=== PATIENT | male | born 1940 | race Caucasian/White ===

== ENCOUNTER 2018-02-03 13:22 | Emergency (ER) | payer MEDICARE ==
[2018-02-03] MEDS ORDERED: AMOXicillin 250 MG CAP ONE (13:42)
== END 2018-02-03 13:50 | disposition home or self-care (01) ==
LOC: BURERS 13:22
DX: J20.9 Acute bronchitis, unspecified (principal); E03.9 Hypothyroidism, unspecified; I10 Essential (primary) hypertension; Z79.899 Other long term (current) drug therapy
CPT/HCPCS: 99283

== ENCOUNTER 2021-07-06 09:51 | Emergency (ER) | payer OTHER | END 2021-07-06 22:55 | disposition home or self-care (01) | LOC: BURERS 09:51 | DX: I10 Essential (primary) hypertension (principal) | CPT/HCPCS: 99281 ==

== ENCOUNTER 2022-08-30 14:32 | Emergency (ER) | payer OTHER ==
[2022-08-30 15:35] LABS: Band 1 % (5-11); Eosinophils 2 % (0-10); Hemoglobin 14.8 g/dL (14.0-18.0); Lymphocytes 14 % (21-51); MDiff Complete? YES; Mean Corpuscular HGB CONC 32.4 g/dL (32.0-36.0); Mean Corpuscular Hemoglobin 28.3 pg (27.0-31.0); Mean Corpuscular Volume 87.3 fl (78.0-98.0); Mean Platelet Volume 7.6 fL (7.4-10.4); Monocytes 17 % (0-10); Neutrophil 66 % (42-75); Platelet Count 216 10x3/uL (130-400); RBC Distribution Width 13.9 % (11.5-14.5); Red Blood Cell (RBC) Count 5.22 mill/uL (4.70-6.10); White Blood Cell (WBC) Count 7.6 10x3/uL (4.8-10.8)
[2022-08-30 15:46] LABS: ALT (SGPT) 18 U/L (8-55); AST (SGOT) 22 U/L (5-34); Albumin 3.8 g/dL (3.4-4.8); Alkaline Phosphatase 61 U/L (40-110); Anion Gap 13 mmol/L (10-20); BUN (Urea Nitrogen) 12 mg/dL (8.4-25.7); Bilirubin, Total 0.4 mg/dL (0.2-1.2); Calc. Creatinine Clearance 0 mL/min (70-130); Calcium 8.3 mg/dL (7.8-10.44); Carbon Dioxide 29 mmol/L (23-31); Chloride 96 mmol/L (98-107); Estimated GFR 51; Glucose 99 mg/dL (83-110); Magnesium 1.6 mg/dL (1.6-2.6); Potassium 3.1 mmol/L (3.5-5.1); Protein, Total 6.8 g/dL (5.8-8.1); Sodium 135 mmol/L (136-145)
[2022-08-30 16:49] LABS: Bilirubin Negative (Negative); Blood, Urine Trace (Negative); Clarity Clear (Clear); Glucose, Urine (Dipstick) Negative (Negative); Ketone, Urine Negative (Negative); Leukocyte Negative (Negative); Nitrite Negative (Negative); Protein, Urine (Dipstick) Trace mg/dL (Neg-Trace); Specific Gravity, Urine 1.015 (1.005-1.030)
[2022-08-30 16:57] LABS: Bacteria/HPF None Seen HPF (None Seen); RBC/HPF 0-3 HPF (0-3); Squamous Epithelial 0-3 HPF (0-3); WBC/HPF None Seen HPF (0-3)
[2022-08-30] MEDS ORDERED: Potassium Chloride 20 MEQ TAB ONE (17:20)
== END 2022-08-30 18:43 | disposition home or self-care (01) ==
LOC: BURERS 14:32
DX: E86.0 Dehydration (principal); E87.6 Hypokalemia; E03.9 Hypothyroidism, unspecified; I10 Essential (primary) hypertension
CPT/HCPCS: 36415; 71045; 80053; 81003; 81015; 83735; 85025; 93005; 96360

== ENCOUNTER 2023-01-15 09:38 | Inpatient (IN) | payer MEDICARE ==
[2023-01-16] MEDS: Hydrocortisone 10 mg Tablet PO SCH (22:20)
[2023-01-17] MEDS: Levothyroxine Sodium 100 MCG TAB PO SCH (04:56)
[2023-01-17] MEDS: Levothyroxine Sodium 50 MCG TAB PO SCH (04:56)
[2023-01-17] MEDS: BROMOCRIPTINE PO SCH ×2 (09:00→11:07)
[2023-01-17] MEDS: Amlodipine 5 MG TAB PO SCH (10:00)
[2023-01-17] MEDS: Hydrocortisone 10 mg Tablet PO SCH ×2 (10:00→21:19)
[2023-01-17] MEDS: PARoxetine 20 MG TAB PO SCH (10:01)
[2023-01-17] MEDS: Aspirin 81 mg Enteric Coated Tablet PO SCH (10:01)
[2023-01-17] MEDS: Dutasteride 0.5 MG CAP PO SCH (10:03)
[2023-01-17] MEDS: Calcium Carbonate 600 MG + Vit D TAB PO SCH (10:03)
[2023-01-17] MEDS ORDERED: Cyanocobalamin 1000 MCG/ML VIAL IM SCH (13:00)
[2023-01-18] MEDS: Levothyroxine Sodium 50 MCG TAB PO SCH (04:54)
[2023-01-18] MEDS: Levothyroxine Sodium 100 MCG TAB PO SCH (04:54)
[2023-01-18] MEDS: Amlodipine 5 MG TAB PO SCH (09:36)
[2023-01-18] MEDS: Hydrocortisone 10 mg Tablet PO SCH ×2 (09:37→21:46)
[2023-01-18] MEDS: Aspirin 81 mg Enteric Coated Tablet PO SCH (09:37)
[2023-01-18] MEDS: Bromocriptine 2.5 MG TAB PO SCH (09:38)
[2023-01-18] MEDS: Calcium Carbonate 600 MG + Vit D TAB PO SCH (09:39)
[2023-01-18] MEDS: Dutasteride 0.5 MG CAP PO SCH (09:39)
[2023-01-18] MEDS: PARoxetine 20 MG TAB PO SCH (09:39)
[2023-01-18] MEDS: TESTOSTERONE CYPIONATE 200 MG/ML IM SCH (09:40)
[2023-01-19] MEDS: Levothyroxine Sodium 100 MCG TAB PO SCH (05:31)
[2023-01-19] MEDS: Levothyroxine Sodium 50 MCG TAB PO SCH (05:32)
[2023-01-19] MEDS: Hydrocortisone 10 mg Tablet PO SCH ×2 (09:10→20:34)
[2023-01-19] MEDS: Bromocriptine 2.5 MG TAB PO SCH (09:10)
[2023-01-19] MEDS: Calcium Carbonate 600 MG + Vit D TAB PO SCH (09:10)
[2023-01-19] MEDS: Dutasteride 0.5 MG CAP PO SCH (09:10)
[2023-01-19] MEDS: Aspirin 81 mg Enteric Coated Tablet PO SCH (09:10)
[2023-01-19] MEDS: Amlodipine 5 MG TAB PO SCH (09:13)
[2023-01-19] MEDS: PARoxetine 20 MG TAB PO SCH (09:14)
[2023-01-20] MEDS: Levothyroxine Sodium 50 MCG TAB PO SCH (05:11)
[2023-01-20] MEDS: Levothyroxine Sodium 100 MCG TAB PO SCH (05:11)
[2023-01-20 05:48] LABS: ALT (SGPT) 34 U/L (8-55); AST (SGOT) 35 U/L (5-34); Albumin 3.6 g/dL (3.4-4.8); Alkaline Phosphatase 81 U/L (40-110); Anion Gap 15 mmol/L (10-20); BUN (Urea Nitrogen) 23 mg/dL (8.4-25.7); Bilirubin, Total 0.4 mg/dL (0.2-1.2); Calc. Creatinine Clearance 33 mL/min (70-130); Calcium 8.1 mg/dL (7.8-10.44); Carbon Dioxide 20 mmol/L (23-31); Chloride 103 mmol/L (98-107); Estimated GFR 36; Globulin 3.4 g/dL (2.4-3.5); Glucose 77 mg/dL (83-110); Sodium 134 mmol/L (136-145)
[2023-01-20 06:29] LABS: Hemoglobin 10.1 g/dL (14.0-18.0); Lymphocytes 30 % (21-51); MDiff Complete? YES; Mean Corpuscular HGB CONC 31.7 g/dL (32.0-36.0); Mean Corpuscular Hemoglobin 26.3 pg (27.0-31.0); Mean Platelet Volume 7.7 fL (7.4-10.4); Monocytes 12 % (0-10); Neutrophil 54 % (42-75); Platelet Count 428 10x3/uL (130-400); Platelet Morphology Comment Appears Increased; RBC Distribution Width 15.9 % (11.5-14.5); RBC Morphology Normal; Red Blood Cell (RBC) Count 3.83 mill/uL (4.70-6.10); White Blood Cell (WBC) Count 3.8 10x3/uL (4.8-10.8)
[2023-01-20] MEDS: Dutasteride 0.5 MG CAP PO SCH (09:37)
[2023-01-20] MEDS: Amlodipine 5 MG TAB PO SCH (09:37)
[2023-01-20] MEDS: Calcium Carbonate 600 MG + Vit D TAB PO SCH (09:37)
[2023-01-20] MEDS: Bromocriptine 2.5 MG TAB PO SCH (09:38)
[2023-01-20] MEDS: PARoxetine 20 MG TAB PO SCH (09:38)
[2023-01-20] MEDS: Hydrocortisone 10 mg Tablet PO SCH ×2 (09:38→20:47)
[2023-01-20] MEDS: Aspirin 81 mg Enteric Coated Tablet PO SCH (09:38)
[2023-01-21] MEDS: Levothyroxine Sodium 100 MCG TAB PO SCH (05:42)
[2023-01-21] MEDS: Levothyroxine Sodium 50 MCG TAB PO SCH (05:42)
[2023-01-21] MEDS: Hydrocortisone 10 mg Tablet PO SCH ×2 (09:56→20:05)
[2023-01-21] MEDS: Bromocriptine 2.5 MG TAB PO SCH (09:56)
[2023-01-21] MEDS: Amlodipine 5 MG TAB PO SCH (09:56)
[2023-01-21] MEDS: Calcium Carbonate 600 MG + Vit D TAB PO SCH (09:59)
[2023-01-21] MEDS: Dutasteride 0.5 MG CAP PO SCH (09:59)
[2023-01-21] MEDS: Aspirin 81 mg Enteric Coated Tablet PO SCH (09:59)
[2023-01-21] MEDS: PARoxetine 20 MG TAB PO SCH (09:59)
[2023-01-22] MEDS: Levothyroxine Sodium 100 MCG TAB PO SCH (05:33)
[2023-01-22] MEDS: Levothyroxine Sodium 50 MCG TAB PO SCH (05:37)
[2023-01-22] MEDS: Hydrocortisone 10 mg Tablet PO SCH ×2 (09:28→20:22)
[2023-01-22] MEDS: PARoxetine 20 MG TAB PO SCH (09:28)
[2023-01-22] MEDS: Aspirin 81 mg Enteric Coated Tablet PO SCH (09:28)
[2023-01-22] MEDS: Dutasteride 0.5 MG CAP PO SCH (09:28)
[2023-01-22] MEDS: Calcium Carbonate 600 MG + Vit D TAB PO SCH (09:28)
[2023-01-22] MEDS: Bromocriptine 2.5 MG TAB PO SCH (09:28)
[2023-01-22] MEDS: Amlodipine 5 MG TAB PO SCH (09:28)
[2023-01-23 05:36] LABS: ALT (SGPT) 31 U/L (8-55); AST (SGOT) 37 U/L (5-34); Albumin 3.9 g/dL (3.4-4.8); Alkaline Phosphatase 85 U/L (40-110); Anion Gap 14 mmol/L (10-20); BUN (Urea Nitrogen) 17 mg/dL (8.4-25.7); Calc. Creatinine Clearance 36 mL/min (70-130); Calcium 8.6 mg/dL (7.8-10.44); Carbon Dioxide 22 mmol/L (23-31); Chloride 104 mmol/L (98-107); Estimated GFR 40; Globulin 3.6 g/dL (2.4-3.5); Glucose 78 mg/dL (83-110); Potassium 4.1 mmol/L (3.5-5.1); Protein, Total 7.5 g/dL (5.8-8.1); Sodium 136 mmol/L (136-145)
[2023-01-23 05:42] LABS: Hemoglobin 11.6 g/dL (14.0-18.0); Mean Corpuscular HGB CONC 32.2 g/dL (32.0-36.0); Mean Corpuscular Hemoglobin 26.9 pg (27.0-31.0); Mean Corpuscular Volume 83.6 fl (78.0-98.0); Mean Platelet Volume 7.6 fL (7.4-10.4); Platelet Count 389 10x3/uL (130-400); RBC Distribution Width 16.1 % (11.5-14.5); Red Blood Cell (RBC) Count 4.31 mill/uL (4.70-6.10); White Blood Cell (WBC) Count 4.5 10x3/uL (4.8-10.8)
[2023-01-23] MEDS: Levothyroxine Sodium 100 MCG TAB PO SCH (05:43)
[2023-01-23] MEDS: Levothyroxine Sodium 50 MCG TAB PO SCH (05:43)
[2023-01-23 05:44] LABS: Bilirubin, Total 0.5 mg/dL (0.2-1.2)
[2023-01-23 06:19] LABS: Band 1 % (5-11); Lymphocytes 33 % (21-51); MDiff Complete? YES; Monocytes 12 % (0-10); Neutrophil 54 % (42-75); RBC Morphology Normal
[2023-01-23] MEDS: Aspirin 81 mg Enteric Coated Tablet PO SCH (10:02)
[2023-01-23] MEDS: Dutasteride 0.5 MG CAP PO SCH (10:02)
[2023-01-23] MEDS: Megestrol Acetate 40 MG TAB PO SCH ×2 (10:02→21:38)
[2023-01-23] MEDS: Calcium Carbonate 600 MG + Vit D TAB PO SCH (10:02)
[2023-01-23] MEDS: Hydrocortisone 10 mg Tablet PO SCH ×2 (10:03→21:38)
[2023-01-23] MEDS: Bromocriptine 2.5 MG TAB PO SCH (10:03)
[2023-01-23] MEDS: PARoxetine 20 MG TAB PO SCH (10:03)
[2023-01-23] MEDS: Amlodipine 5 MG TAB PO SCH ×2 (10:03→10:11)
[2023-01-24] MEDS: Levothyroxine Sodium 50 MCG TAB PO SCH (05:48)
[2023-01-24] MEDS: Levothyroxine Sodium 100 MCG TAB PO SCH (05:48)
[2023-01-24] MEDS: Calcium Carbonate 600 MG + Vit D TAB PO SCH (09:04)
[2023-01-24] MEDS: Hydrocortisone 10 mg Tablet PO SCH ×2 (09:04→20:15)
[2023-01-24] MEDS: Polyethylene Glycol 3350 17 GM Packet PO PRN (09:04)
[2023-01-24] MEDS: Dutasteride 0.5 MG CAP PO SCH (09:04)
[2023-01-24] MEDS: Megestrol Acetate 40 MG TAB PO SCH ×2 (09:04→20:15)
[2023-01-24] MEDS: PARoxetine 20 MG TAB PO SCH (09:05)
[2023-01-24] MEDS: Amlodipine 5 MG TAB PO SCH (09:05)
[2023-01-24] MEDS: Bromocriptine 2.5 MG TAB PO SCH (09:05)
[2023-01-24] MEDS: Aspirin 81 mg Enteric Coated Tablet PO SCH (09:05)
[2023-01-25] MEDS: Levothyroxine Sodium 100 MCG TAB PO SCH (05:30)
[2023-01-25] MEDS: Levothyroxine Sodium 50 MCG TAB PO SCH (05:30)
[2023-01-25] MEDS: Hydrocortisone 10 mg Tablet PO SCH ×2 (09:08→20:28)
[2023-01-25] MEDS: Bromocriptine 2.5 MG TAB PO SCH (09:08)
[2023-01-25] MEDS: Dutasteride 0.5 MG CAP PO SCH (09:08)
[2023-01-25] MEDS: PARoxetine 20 MG TAB PO SCH (09:08)
[2023-01-25] MEDS: Calcium Carbonate 600 MG + Vit D TAB PO SCH (09:09)
[2023-01-25] MEDS: Amlodipine 5 MG TAB PO SCH (09:09)
[2023-01-25] MEDS: Megestrol Acetate 40 MG TAB PO SCH ×2 (09:10→20:28)
[2023-01-25] MEDS: Aspirin 81 mg Enteric Coated Tablet PO SCH (09:10)
[2023-01-25] MEDS: Polyethylene Glycol 3350 17 GM Packet PO PRN (09:19)
[2023-01-26] MEDS: Levothyroxine Sodium 100 MCG TAB PO SCH (05:21)
[2023-01-26] MEDS: Levothyroxine Sodium 50 MCG TAB PO SCH (05:21)
[2023-01-26] MEDS ORDERED: Milk Of Magnesia 30 ML UDCUP PO PRN (07:18)
[2023-01-26] MEDS: Dutasteride 0.5 MG CAP PO SCH (08:51)
[2023-01-26] MEDS: Calcium Carbonate 600 MG + Vit D TAB PO SCH (08:51)
[2023-01-26] MEDS: PARoxetine 20 MG TAB PO SCH (08:52)
[2023-01-26] MEDS: Amlodipine 5 MG TAB PO SCH (08:52)
[2023-01-26] MEDS: Bromocriptine 2.5 MG TAB PO SCH (08:52)
[2023-01-26] MEDS: Megestrol Acetate 40 MG TAB PO SCH ×2 (08:52→21:32)
[2023-01-26] MEDS: Hydrocortisone 10 mg Tablet PO SCH ×2 (08:52→21:32)
[2023-01-26] MEDS: Aspirin 81 mg Enteric Coated Tablet PO SCH (09:02)
[2023-01-27] MEDS: Levothyroxine Sodium 50 MCG TAB PO SCH (06:35)
[2023-01-27] MEDS: Levothyroxine Sodium 100 MCG TAB PO SCH (06:35)
[2023-01-27] MEDS: Dutasteride 0.5 MG CAP PO SCH (09:10)
[2023-01-27] MEDS: Megestrol Acetate 40 MG TAB PO SCH ×2 (09:10→21:44)
[2023-01-27] MEDS: Hydrocortisone 10 mg Tablet PO SCH ×2 (09:10→21:43)
[2023-01-27] MEDS: PARoxetine 20 MG TAB PO SCH (09:10)
[2023-01-27] MEDS: Amlodipine 5 MG TAB PO SCH (09:11)
[2023-01-27] MEDS: Aspirin 81 mg Enteric Coated Tablet PO SCH (09:11)
[2023-01-27] MEDS: Bromocriptine 2.5 MG TAB PO SCH (09:11)
[2023-01-27] MEDS: Calcium Carbonate 600 MG + Vit D TAB PO SCH (09:11)
[2023-01-27] MEDS: Senokot S 8.6-50 MG TAB PO SCH ×2 (09:15→21:45)
[2023-01-27] MEDS: Atorvastatin Calcium 40 MG TAB PO SCH (21:44)
[2023-01-28] MEDS: Levothyroxine Sodium 100 MCG TAB PO SCH (05:44)
[2023-01-28] MEDS: Levothyroxine Sodium 50 MCG TAB PO SCH (05:44)
[2023-01-28] MEDS: Megestrol Acetate 40 MG TAB PO SCH ×2 (08:59→21:01)
[2023-01-28] MEDS: Aspirin 81 mg Enteric Coated Tablet PO SCH (08:59)
[2023-01-28] MEDS: Senokot S 8.6-50 MG TAB PO SCH ×2 (08:59→21:01)
[2023-01-28] MEDS: Dutasteride 0.5 MG CAP PO SCH (08:59)
[2023-01-28] MEDS: PARoxetine 20 MG TAB PO SCH (08:59)
[2023-01-28] MEDS: Hydrocortisone 10 mg Tablet PO SCH ×2 (08:59→21:01)
[2023-01-28] MEDS: Bromocriptine 2.5 MG TAB PO SCH (08:59)
[2023-01-28] MEDS: Calcium Carbonate 600 MG + Vit D TAB PO SCH (09:00)
[2023-01-28] MEDS: Amlodipine 5 MG TAB PO SCH (09:00)
[2023-01-28] MEDS: Atorvastatin Calcium 40 MG TAB PO SCH (21:01)
[2023-01-29] MEDS: Levothyroxine Sodium 50 MCG TAB PO SCH (06:04)
[2023-01-29] MEDS: Levothyroxine Sodium 100 MCG TAB PO SCH (06:04)
[2023-01-29] MEDS: Calcium Carbonate 600 MG + Vit D TAB PO SCH (08:53)
[2023-01-29] MEDS: Dutasteride 0.5 MG CAP PO SCH (08:53)
[2023-01-29] MEDS: Amlodipine 5 MG TAB PO SCH (08:53)
[2023-01-29] MEDS: PARoxetine 20 MG TAB PO SCH (08:53)
[2023-01-29] MEDS: Aspirin 81 mg Enteric Coated Tablet PO SCH (08:53)
[2023-01-29] MEDS: Hydrocortisone 10 mg Tablet PO SCH ×2 (08:53→21:23)
[2023-01-29] MEDS: Bromocriptine 2.5 MG TAB PO SCH (08:53)
[2023-01-29] MEDS: Megestrol Acetate 40 MG TAB PO SCH ×2 (08:53→21:23)
[2023-01-29] MEDS: Senokot S 8.6-50 MG TAB PO SCH ×2 (08:54→21:23)
[2023-01-29] MEDS: Atorvastatin Calcium 40 MG TAB PO SCH (21:23)
[2023-01-30] MEDS: Levothyroxine Sodium 50 MCG TAB PO SCH (05:39)
[2023-01-30] MEDS: Levothyroxine Sodium 100 MCG TAB PO SCH (05:39)
[2023-01-30] MEDS: Megestrol Acetate 40 MG TAB PO SCH ×2 (09:28→20:51)
[2023-01-30] MEDS: Bromocriptine 2.5 MG TAB PO SCH (09:28)
[2023-01-30] MEDS: PARoxetine 20 MG TAB PO SCH (09:28)
[2023-01-30] MEDS: Amlodipine 5 MG TAB PO SCH (09:28)
[2023-01-30] MEDS: Hydrocortisone 10 mg Tablet PO SCH ×2 (09:28→20:51)
[2023-01-30] MEDS: Calcium Carbonate 600 MG + Vit D TAB PO SCH (09:28)
[2023-01-30] MEDS: Dutasteride 0.5 MG CAP PO SCH (09:28)
[2023-01-30] MEDS: Aspirin 81 mg Enteric Coated Tablet PO SCH (09:29)
[2023-01-30] MEDS: Senokot S 8.6-50 MG TAB PO SCH ×2 (09:29→20:52)
[2023-01-30] MEDS: Atorvastatin Calcium 40 MG TAB PO SCH (20:51)
[2023-01-31] MEDS: Levothyroxine Sodium 100 MCG TAB PO SCH (05:45)
[2023-01-31] MEDS: Levothyroxine Sodium 50 MCG TAB PO SCH (05:45)
[2023-01-31] MEDS: Aspirin 81 mg Enteric Coated Tablet PO SCH (09:24)
[2023-01-31] MEDS: Amlodipine 5 MG TAB PO SCH (09:24)
[2023-01-31] MEDS: Megestrol Acetate 40 MG TAB PO SCH ×2 (09:24→21:40)
[2023-01-31] MEDS: PARoxetine 20 MG TAB PO SCH (09:24)
[2023-01-31] MEDS: Dutasteride 0.5 MG CAP PO SCH (09:24)
[2023-01-31] MEDS: Hydrocortisone 10 mg Tablet PO SCH ×2 (09:25→21:40)
[2023-01-31] MEDS: Calcium Carbonate 600 MG + Vit D TAB PO SCH (09:25)
[2023-01-31] MEDS: Bromocriptine 2.5 MG TAB PO SCH (09:25)
[2023-01-31] MEDS: Senokot S 8.6-50 MG TAB PO SCH ×2 (09:32→21:41)
[2023-01-31] MEDS: Atorvastatin Calcium 40 MG TAB PO SCH (21:40)
[2023-02-01] MEDS: Levothyroxine Sodium 50 MCG TAB PO SCH (05:31)
[2023-02-01] MEDS: Levothyroxine Sodium 100 MCG TAB PO SCH (05:31)
[2023-02-01] MEDS: Aspirin 81 mg Enteric Coated Tablet PO SCH (10:37)
[2023-02-01] MEDS: Megestrol Acetate 40 MG TAB PO SCH ×2 (10:37→21:11)
[2023-02-01] MEDS: Senokot S 8.6-50 MG TAB PO SCH ×2 (10:37→21:12)
[2023-02-01] MEDS: Dutasteride 0.5 MG CAP PO SCH (10:37)
[2023-02-01] MEDS: PARoxetine 20 MG TAB PO SCH (10:37)
[2023-02-01] MEDS: Amlodipine 5 MG TAB PO SCH (10:37)
[2023-02-01] MEDS: Calcium Carbonate 600 MG + Vit D TAB PO SCH (10:38)
[2023-02-01] MEDS: Bromocriptine 2.5 MG TAB PO SCH (10:38)
[2023-02-01] MEDS: Hydrocortisone 10 mg Tablet PO SCH ×2 (10:38→21:11)
[2023-02-01] MEDS: Atorvastatin Calcium 40 MG TAB PO SCH (21:11)
[2023-02-02] MEDS: Levothyroxine Sodium 50 MCG TAB PO SCH (06:06)
[2023-02-02] MEDS: Levothyroxine Sodium 100 MCG TAB PO SCH (06:06)
[2023-02-02] MEDS: PARoxetine 20 MG TAB PO SCH (09:42)
[2023-02-02] MEDS: Hydrocortisone 10 mg Tablet PO SCH ×2 (09:42→21:10)
[2023-02-02] MEDS: Senokot S 8.6-50 MG TAB PO SCH ×2 (09:42→21:10)
[2023-02-02] MEDS: Aspirin 81 mg Enteric Coated Tablet PO SCH (09:42)
[2023-02-02] MEDS: Dutasteride 0.5 MG CAP PO SCH (09:43)
[2023-02-02] MEDS: Calcium Carbonate 600 MG + Vit D TAB PO SCH (09:43)
[2023-02-02] MEDS: Bromocriptine 2.5 MG TAB PO SCH (09:43)
[2023-02-02] MEDS: Amlodipine 5 MG TAB PO SCH (09:44)
[2023-02-02] MEDS: Megestrol Acetate 40 MG TAB PO SCH ×2 (09:44→21:10)
[2023-02-02] MEDS: Atorvastatin Calcium 40 MG TAB PO SCH (21:10)
[2023-02-03] MEDS: Levothyroxine Sodium 50 MCG TAB PO SCH (05:13)
[2023-02-03] MEDS: Levothyroxine Sodium 100 MCG TAB PO SCH (05:13)
[2023-02-03] MEDS: PARoxetine 20 MG TAB PO SCH (08:02)
[2023-02-03] MEDS: Aspirin 81 mg Enteric Coated Tablet PO SCH (08:02)
[2023-02-03] MEDS: Megestrol Acetate 40 MG TAB PO SCH ×2 (08:02→21:46)
[2023-02-03] MEDS: Amlodipine 5 MG TAB PO SCH (08:02)
[2023-02-03] MEDS: Senokot S 8.6-50 MG TAB PO SCH ×2 (08:02→21:46)
[2023-02-03] MEDS: Hydrocortisone 10 mg Tablet PO SCH ×2 (08:03→21:46)
[2023-02-03] MEDS: Dutasteride 0.5 MG CAP PO SCH (08:03)
[2023-02-03] MEDS: Calcium Carbonate 600 MG + Vit D TAB PO SCH (08:03)
[2023-02-03] MEDS: Bromocriptine 2.5 MG TAB PO SCH (08:03)
[2023-02-03 10:29] VITALS: BMI 24.5
[2023-02-03] MEDS: Atorvastatin Calcium 40 MG TAB PO SCH (21:46)
[2023-02-04] MEDS: Levothyroxine Sodium 100 MCG TAB PO SCH (05:13)
[2023-02-04] MEDS: Levothyroxine Sodium 50 MCG TAB PO SCH (05:13)
[2023-02-04] MEDS: Bromocriptine 2.5 MG TAB PO SCH (09:34)
[2023-02-04] MEDS: Senokot S 8.6-50 MG TAB PO SCH ×2 (09:34→21:09)
[2023-02-04] MEDS: Aspirin 81 mg Enteric Coated Tablet PO SCH (09:35)
[2023-02-04] MEDS: Dutasteride 0.5 MG CAP PO SCH (09:35)
[2023-02-04] MEDS: Hydrocortisone 10 mg Tablet PO SCH ×2 (09:35→21:09)
[2023-02-04] MEDS: Megestrol Acetate 40 MG TAB PO SCH ×2 (09:35→21:09)
[2023-02-04] MEDS: PARoxetine 20 MG TAB PO SCH (09:35)
[2023-02-04] MEDS: Calcium Carbonate 600 MG + Vit D TAB PO SCH (09:35)
[2023-02-04] MEDS: Amlodipine 5 MG TAB PO SCH (09:35)
[2023-02-04] MEDS: Atorvastatin Calcium 40 MG TAB PO SCH (21:09)
[2023-02-05] MEDS: Levothyroxine Sodium 100 MCG TAB PO SCH (05:45)
[2023-02-05] MEDS: Levothyroxine Sodium 50 MCG TAB PO SCH (05:45)
[2023-02-05] MEDS: Senokot S 8.6-50 MG TAB PO SCH ×2 (09:54→21:03)
[2023-02-05] MEDS: Hydrocortisone 10 mg Tablet PO SCH ×2 (09:54→21:03)
[2023-02-05] MEDS: Bromocriptine 2.5 MG TAB PO SCH (09:54)
[2023-02-05] MEDS: Dutasteride 0.5 MG CAP PO SCH (09:54)
[2023-02-05] MEDS: Megestrol Acetate 40 MG TAB PO SCH ×2 (09:54→21:03)
[2023-02-05] MEDS: Calcium Carbonate 600 MG + Vit D TAB PO SCH (09:54)
[2023-02-05] MEDS: Amlodipine 5 MG TAB PO SCH (09:54)
[2023-02-05] MEDS: PARoxetine 20 MG TAB PO SCH (09:55)
[2023-02-05] MEDS: Aspirin 81 mg Enteric Coated Tablet PO SCH (09:55)
[2023-02-05] MEDS: Atorvastatin Calcium 40 MG TAB PO SCH (21:03)
[2023-02-06] MEDS: Levothyroxine Sodium 50 MCG TAB PO SCH (05:44)
[2023-02-06] MEDS: Levothyroxine Sodium 100 MCG TAB PO SCH (05:44)
[2023-02-06] MEDS: Senokot S 8.6-50 MG TAB PO SCH ×2 (09:33→20:32)
[2023-02-06] MEDS: Dutasteride 0.5 MG CAP PO SCH (09:33)
[2023-02-06] MEDS: Aspirin 81 mg Enteric Coated Tablet PO SCH (09:33)
[2023-02-06] MEDS: Bromocriptine 2.5 MG TAB PO SCH (09:33)
[2023-02-06] MEDS: Hydrocortisone 10 mg Tablet PO SCH ×2 (09:33→20:32)
[2023-02-06] MEDS: Calcium Carbonate 600 MG + Vit D TAB PO SCH (09:34)
[2023-02-06] MEDS: Amlodipine 5 MG TAB PO SCH (09:34)
[2023-02-06] MEDS: Megestrol Acetate 40 MG TAB PO SCH ×2 (09:34→20:32)
[2023-02-06] MEDS: PARoxetine 20 MG TAB PO SCH (09:34)
[2023-02-06] MEDS: Atorvastatin Calcium 40 MG TAB PO SCH (20:32)
[2023-02-07] MEDS: Levothyroxine Sodium 50 MCG TAB PO SCH (04:59)
[2023-02-07] MEDS: Levothyroxine Sodium 100 MCG TAB PO SCH (04:59)
[2023-02-07] MEDS ORDERED: Cyanocobalamin 1000 MCG/ML VIAL IM SCH (09:00)
[2023-02-07] MEDS: Calcium Carbonate 600 MG + Vit D TAB PO SCH (10:05)
[2023-02-07] MEDS: Bromocriptine 2.5 MG TAB PO SCH (10:05)
[2023-02-07] MEDS: Hydrocortisone 10 mg Tablet PO SCH ×2 (10:05→20:33)
[2023-02-07] MEDS: Dutasteride 0.5 MG CAP PO SCH (10:05)
[2023-02-07] MEDS: Megestrol Acetate 40 MG TAB PO SCH ×2 (10:05→20:32)
[2023-02-07] MEDS: Aspirin 81 mg Enteric Coated Tablet PO SCH (10:06)
[2023-02-07] MEDS: Amlodipine 5 MG TAB PO SCH (10:06)
[2023-02-07] MEDS: Senokot S 8.6-50 MG TAB PO SCH ×2 (10:13→20:32)
[2023-02-07] MEDS: PARoxetine 20 MG TAB PO SCH (10:13)
[2023-02-07] MEDS: Atorvastatin Calcium 40 MG TAB PO SCH (20:32)
[2023-02-08] MEDS: Levothyroxine Sodium 100 MCG TAB PO SCH (05:27)
[2023-02-08] MEDS: Levothyroxine Sodium 50 MCG TAB PO SCH (05:28)
[2023-02-08] MEDS: Aspirin 81 mg Enteric Coated Tablet PO SCH (08:27)
[2023-02-08] MEDS: Megestrol Acetate 40 MG TAB PO SCH ×2 (08:28→20:51)
[2023-02-08] MEDS: Hydrocortisone 10 mg Tablet PO SCH ×2 (08:28→20:51)
[2023-02-08] MEDS: Dutasteride 0.5 MG CAP PO SCH (08:28)
[2023-02-08] MEDS: PARoxetine 20 MG TAB PO SCH (08:28)
[2023-02-08] MEDS: Calcium Carbonate 600 MG + Vit D TAB PO SCH (08:28)
[2023-02-08] MEDS: Senokot S 8.6-50 MG TAB PO SCH ×2 (08:29→20:51)
[2023-02-08] MEDS: Amlodipine 5 MG TAB PO SCH (08:29)
[2023-02-08] MEDS: Bromocriptine 2.5 MG TAB PO SCH (08:29)
[2023-02-08] MEDS: TESTOSTERONE CYPIONATE 200 MG/ML IM SCH (08:38)
[2023-02-08] MEDS: Atorvastatin Calcium 40 MG TAB PO SCH (20:51)
[2023-02-09] MEDS: Levothyroxine Sodium 100 MCG TAB PO SCH (05:21)
[2023-02-09] MEDS: Levothyroxine Sodium 50 MCG TAB PO SCH (05:21)
[2023-02-09 06:15] VITALS: BP 184/73; TEMP 98.1
[2023-02-09] MEDS: Amlodipine 5 MG TAB PO SCH (07:05)
[2023-02-09] MEDS: Megestrol Acetate 40 MG TAB PO SCH (07:05)
[2023-02-09] MEDS: Calcium Carbonate 600 MG + Vit D TAB PO SCH (07:05)
[2023-02-09] MEDS: Dutasteride 0.5 MG CAP PO SCH (07:06)
[2023-02-09] MEDS: Bromocriptine 2.5 MG TAB PO SCH (07:06)
[2023-02-09] MEDS: Aspirin 81 mg Enteric Coated Tablet PO SCH (07:07)
[2023-02-09] MEDS: PARoxetine 20 MG TAB PO SCH (07:07)
[2023-02-09] MEDS: Senokot S 8.6-50 MG TAB PO SCH (07:07)
[2023-02-09] MEDS: Hydrocortisone 10 mg Tablet PO SCH (07:10)
== END 2023-02-09 15:00 | DRG 948 ==
LOC: BURMED 01-16 18:10
PROVIDERS: ADMIT Family Medicine; ATTEND Nurse Practitioner
DX: R53.1 Weakness (principal); F10.239 Alcohol dependence with withdrawal, unspecified; I13.0 Hypertensive heart and chronic kidney disease with heart failure and stage 1 through stage 4 chronic kidney disease, or unspecified chronic kidney disease; I25.10 Atherosclerotic heart disease of native coronary artery without angina pectoris; I48.91 Unspecified atrial fibrillation; E03.9 Hypothyroidism, unspecified; F10.20 Alcohol dependence, uncomplicated; I50.9 Heart failure, unspecified; N18.9 Chronic kidney disease, unspecified; I25.2 Old myocardial infarction; Z98.890 Other specified postprocedural states
CPT/HCPCS: 36415; 80053; 85025; J3420; S0179

== ENCOUNTER 2023-05-18 18:06 | Emergency (ER) | payer OTHER ==
[2023-05-18 18:42] LABS: #Basophils 0.1 thou/uL (0.0-0.2); #Eosinphils 0.6 thou/uL (0.0-0.7); #Lymphocytes 2.4 thou/uL (1.20-3.40); #Monocytes 1.2 thou/uL (0.11-0.59); #Neutrophils 4.8 thou/uL (1.40-6.50); %Basophils 1.3 % (0.0-1.0); %Eosinophils 6.5 % (0.0-10.0); %Lymphocytes 26.3 % (21.0-51.0); %Monocytes 12.9 % (0.0-10.0); %Neutrophils 52.9 % (42.0-75.0); Hematocrit 37.2 % (42.0-52.0); Hemoglobin 11.5 g/dL (14.0-18.0); Mean Corpuscular Hemoglobin 24.8 pg (27.0-31.0); Mean Platelet Volume 7.5 fL (7.4-10.4); Platelet Count 207 10x3/uL (130-400); RBC Distribution Width 13.3 % (11.5-14.5); Red Blood Cell (RBC) Count 4.64 mill/uL (4.70-6.10)
[2023-05-18 18:59] LABS: ALT (SGPT) 38 U/L (8-55); AST (SGOT) 27 U/L (5-34); Albumin 3.6 g/dL (3.4-4.8); Alkaline Phosphatase 57 U/L (40-110); Anion Gap 12 mmol/L (10-20); BUN (Urea Nitrogen) 17 mg/dL (8.4-25.7); Bilirubin, Total 0.5 mg/dL (0.2-1.2); Calc. Creatinine Clearance 0 mL/min (70-130); Calcium 8.4 mg/dL (7.8-10.44); Carbon Dioxide 29 mmol/L (23-31); Chloride 98 mmol/L (98-107); Estimated GFR 56; Globulin 2.5 g/dL (2.4-3.5); Glucose 86 mg/dL (83-110); Magnesium 1.9 mg/dL (1.6-2.6); Potassium 4.1 mmol/L (3.5-5.1); Protein, Total 6.1 g/dL (5.8-8.1); Sodium 135 mmol/L (136-145)
[2023-05-18 19:06] LABS: Troponin I 0.031 ng/mL (< 0.028)
[2023-05-18 19:08] LABS: Hypochromia SLIGHT = 6-15 cells (100X) (0-5/hpf); MDiff Complete? YES
[2023-05-18] MEDS ORDERED: Aspirin 325 MG TAB ONE (20:01)
[2023-05-18 20:08] LABS: Bilirubin Negative (Negative); Blood, Urine Negative (Negative); Clarity Clear (Clear); Glucose, Urine (Dipstick) Negative (Negative); Ketone, Urine Negative (Negative); Leukocyte Negative (Negative); Nitrite Negative (Negative); Protein, Urine (Dipstick) Negative (Neg-Trace); Urobilinogen 0.2 mg/dL (Less than 2); pH, Urine 6.5 (5.0-9.0)
[2023-05-18 20:13] LABS: Bacteria/HPF 1+ HPF (None Seen); CAUTI Indications for Culture Dysuria,urgency,freq; RBC/HPF None Seen HPF (0-3); Squamous Epithelial 0-3 HPF (0-3); Urine Culture Reflex No No; WBC/HPF 0-3 HPF (0-3)
== END 2023-05-18 21:52 | disposition short-term general hospital (02) ==
LOC: BURERS 18:06
DX: I21.4 Non-ST elevation (NSTEMI) myocardial infarction (principal); E03.9 Hypothyroidism, unspecified; I10 Essential (primary) hypertension; Z79.899 Other long term (current) drug therapy
CPT/HCPCS: 71045; 80053; 81001; 83735; 83880; 84484; 85025; 93005; 94760

== ENCOUNTER 2025-09-23 14:14 | Emergency (ER) | payer OTHER | END 2025-09-23 15:30 | disposition home or self-care (01) | LOC: BURERS 14:14 | DX: S51.011A Laceration without foreign body of right elbow, initial encounter (principal); I25.2 Old myocardial infarction; I10 Essential (primary) hypertension; E03.9 Hypothyroidism, unspecified; E78.5 Hyperlipidemia, unspecified; Z86.73 Personal history of transient ischemic attack (TIA), and cerebral infarction without residual deficits; Z79.82 Long term (current) use of aspirin; Z79.899 Other long term (current) drug therapy; Z79.890 Hormone replacement therapy; W10.1XXA Fall (on)(from) sidewalk curb, initial encounter ==